=== PATIENT | male | born 1995 | race Caucasian/White ===

== ENCOUNTER 2016-07-17 15:55 | Emergency (ER) | payer OTHER ==
[~2016-07-17] VITALS: Wt 87.0 kg
--- NOTE | 2016-07-17 19:51 | ERD ---
ER Documentation Chief Complaint Date/Time DATE: 07/17/16 TIME: 19:43 Chief Complaint HEAD INJURY S/P GLF YESTERDAY, NO KO HPI Patient is a 20-year-old male who presents to the emergency department with a headache status post fall yesterday. Patient states that he fell off his skateboard and hit the left side of his head. Patient states he had approximately one hour of "feeling dazed and confused." Patient reported during that time he had decreased vision. Patient states she had 2 episodes of nonbloody nonbilious vomiting yesterday. Patient states that he went to bed last night and "felt better this morning," however he continues to have some left sided head pain. Patient describes the pain to a 7 out of 10. Patient denies any nausea, vomiting, confusion or excessive sleepiness today. He denies any loss of consciousness. Patient has been able to eat and drink normally any nausea today. Patient denies any chest pain, shortness of breath, abdominal pain or lacerations. ROS All systems reviewed and are negative except as per history of present illness. Medications Home Meds Active Scripts Ondansetron (Ondansetron Odt) 4 Mg Tab.rapdis, 4 MG PO Q6H Y for NAUSEA AND/OR VOMITING, #10 TAB Prov:SHAWN ROBIN PA-C 07/17/16 Acetaminophen* (Tylophen*) 500 Mg Capsule, 2 CAP PO Q8H Y for PAIN AND OR ELEVATED TEMP, #20 CAP Prov:SHAWN ROBIN PA-C 07/17/16 Allergies Allergies: Coded Allergies: No Known Allergy (Unverified , 07/17/16) PMhx/Soc Medical and Surgical Hx: pt denies Medical Hx, pt denies Surgical Hx Hx Alcohol Use: No Hx Substance Use: No Hx Tobacco Use: No Smoking Status: Never smoker FmHx Family History: No diabetes Physical Exam Vitals Vital Signs Date Time Temp Pulse Resp B/P Pulse Ox O2 Delivery O2 Flow Rate FiO2 07/17/16 21:20 98.6 80 18 131/70 99 Room Air 07/17/16 16:25 96.7 70 18 133/71 98 Physical Exam GENERAL: Well-developed, well-nourished male. Appears in no acute distress. Speaking in full sentences. HEAD: Normocephalic, atraumatic. No deformities or hematomas. + Scalp ecchymosis noted to left temporal region. Tender to palpation over the left temporal region. No step-offs. No mastoid tenderness or ecchymosis noted bilaterally. EYE: Pupils equal, round, and reactive to light. EOMs intact. No conjunctival erythema. No scleral icterus. No eye discharge. No bilateral periorbital ecchymosis. ENT: External ear without any masses or tenderness. Auditory canals clear bilaterally. No hemotypanium bilaterally. TM visualized bilaterally, non- erythematous, non-bulging. Nasal mucosa pink with no discharge. Oropharynx is pink without any tonsillar erythema or exudates. No uvula deviation. No kissing tonsils. No mastoid process tenderness or ecchymosis bilaterally. NECK: Supple. No lymphadenopathy or thyromegaly. No meningismus. Trachea midline. Normal range of motion of cervical spine. No midline tenderness. LUNG: Clear to auscultation bilaterally. No rhonchi, wheezing, rales or coarse breath sounds. HEART: Regular rate and rhythm. No murmurs, rubs or gallops. BACK: No midline tenderness. EXTREMITIES: Equal pulses bilaterally. No peripheral clubbing, cyanosis or edema. No unilateral leg swelling. NEUROLOGIC: Alert and oriented x3, cooperative. Mood and affect appropriate to situation. Cranial nerves II through XII are grossly intact. Normal speech. Motor exam: 5/5 strength in upper and lower extremities. Sensory exam: Sensation intact to light touch on all four extremities. Cerebellar function exam: No dysmetria on [id number]. Steady gait. No pronator drift. SKIN: Normal color. Warm and dry. No rashes or lesions. Procedures/MDM ED COURSE: The patient was stable throughout ED course. I kept the patient and/or family informed of laboratory and diagnostic imaging results throughout the ED course. DIAGNOSTIC IMAGING: Read by radiologist. DIAGNOSTIC IMAGING REPORT Patient: DA SHELLEY : 1995 Age: 20 Sex: M MR #: [id number] DOS: 07/17/161928 Ordering MD: SHAWN ROBIN PA-C Location: [facility] Room/Bed: PROCEDURE: CT Brain without. CLINICAL INDICATION: Head trauma. TECHNIQUE: A CT of the brain was performed on multidetector high-resolution CT scanner utilizing axial sections from the skull base through the vertex without contrast. The scan was reviewed in soft tissue brain and high frequency resolution bone algorithm windows. Images were reviewed on a high- resolution PACS workstation. One or more the following does reduction techniques were utilized: Automated exposure control, adjustment of themA/ or kV according to patient's size, or use of iterative reconstruction technique. The exam CTDI = 45.01 mGy and the DLP = 720.23 mGy-cm. COMPARISON: None available. FINDINGS: The ventricles and sulci are age-appropriate. There is no intracranial hemorrhage, mass effect or midline shift. No abnormal intra-axial or extra- axial fluid collections are seen. The alonso/white matter differentiation is preserved. No acute skull abnormality is noted. The visualized paranasal sinuses are essentially clear. IMPRESSION: 1. No acute intracranial hemorrhage, transcortical infarction or mass effect. RPTAT: HH .Rina Louis MD, MD Date Time Electronically viewed and signed by .Rina Louis MD, MD on 07/17/2016 20: 11 .N/ CC: SHAWN ROBIN PA-C MEDICAL DECISION MAKING: This is a 20-year-old male who presents with a headache status post ground- level fall yesterday. Patient reported feeling confused and episodes of vomiting yesterday. Patient's symptoms have improved today. Patient denies any nausea, vomiting, confusion, excessive sleepiness or loss of consciousness today. Vital signs were reviewed. Patient was afebrile. Patient was not hypoxic. Full neurological exam was normal. CT brain without IV contrast was ordered. CT brain showed no acute intracranial hemorrhage, transcortical infarction or mass effect. Given these findings, the patients presentation is most consistent with concussion. I have a much lower clinical concern for traumatic brain injury, intracranial hemorrhage, meningitis, benign intracranial hypertension, intracranial mass, cluster headache. PRESCRIPTIONS: Tylenol Zofran DISCHARGE: At this time, patient is stable for discharge and outpatient management. Strict head injury precautions were discussed with the patient and his mother. I have instructed the family to monitor the patient closely and return to the ER immediately for any new or worsening symptoms including increased pain, headache , nausea, vomiting, weakness, numbness, confusion, excessive sleepiness, seizures or LOC. Patient should follow-up with his/her primary care physician in 1-2 days. The patient and/or family expressed understanding of and agreement with this plan. All questions were answered. Home care instructions were provided. Departure Diagnosis: Primary Impression: Concussion Encounter type: initial encounter Loss of consciousness presence/duration: without LOC Qualified Code: S06.0X0A - Concussion, without loss of consciousness, initial encounter Additional Impression: Headache Headache type: unspecified Headache chronicity pattern: acute headache Intractability: not intractable Qualified Code: R51 - Acute nonintractable headache, unspecified headache type Condition: Stable Patient Instructions: HEAD INJURY, No Wake-Up (Adult) Referrals: [facility] YOU HAVE RECEIVED A MEDICAL SCREENING EXAM AND THE RESULTS INDICATE THAT YOU DO NOT HAVE A CONDITION THAT REQUIRES URGENT TREATMENT IN THE EMERGENCY DEPARTMENT. FURTHER EVALUATION AND TREATMENT OF YOUR CONDITION CAN WAIT UNTIL YOU ARE SEEN IN YOUR DOCTORS OFFICE WITHIN THE NEXT 1-2 DAYS. IT IS YOUR RESPONSIBILITY TO MAKE AN APPOINTMENT FOR [facility]. IF YOU HAVE A PRIMARY DOCTOR --you should call your primary doctor and schedule an appointment IF YOU DO NOT HAVE A PRIMARY DOCTOR YOU CAN CALL OUR PHYSICIAN REFERRAL HOTLINE AT IF YOU CAN NOT AFFORD TO SEE A PHYSICIAN YOU CAN CHOSE FROM THE FOLLOWING [facility] [address] [facility]. [facility] [address] [facility]. [facility] [address] [facility] [facility] [address] [facility] [address] [facility]. [facility]. [address] [facility]. [facility] YOU HAVE RECEIVED A MEDICAL SCREENING EXAM AND THE RESULTS INDICATE THAT YOU DO NOT HAVE A CONDITION THAT REQUIRES URGENT TREATMENT IN THE EMERGENCY DEPARTMENT. FURTHER EVALUATION AND TREATMENT OF YOUR CONDITION CAN WAIT UNTIL YOU ARE SEEN IN YOUR DOCTORS OFFICE WITHIN THE NEXT 1-2 DAYS. IT IS YOUR RESPONSIBILITY TO MAKE AN APPOINTMENT FOR FOLOW-UP CARE. IF YOU HAVE A PRIMARY DOCTOR --you should call your primary doctor and schedule and appointment IF YOU DO NOT HAVE A PRIMARY DOCTOR YOU CAN CALL OUR PHYSICIAN REFERRAL HOTLINE AT . IF YOU CAN NOT AFFORD TO SEE A PHYSICIAN YOU CAN CHOSE FROM THE FOLLOWING [facility]: [facility] [address] [place] [address] [facility] [address] [place] [address] [facility] + [facility] [address] [place] [address] Additional Instructions: Call your primary care doctor TOMORROW for an appointment during the next 1-2 days.See the doctor sooner or return here if your condition worsens before your appointment time. Patient was given strict head injury return precautions. She was advised to return to the emergency department for any worsening head pain, nausea, vomiting , confusion, excessive sleepiness, loss of consciousness. SHAWN ROBIN PA-C Jul 17, 2016 19:51
--- NOTE | 2016-07-17 20:11 | RADRPT ---
PROCEDURE: CT Brain without. CLINICAL INDICATION: Head trauma. TECHNIQUE: A CT of the brain was performed on multidetector high-resolution CT scanner utilizing a xial sections from the skull base through the vertex without contrast. The scan was reviewed in sof t tissue brain and high frequency resolution bone algorithm windows. Images were reviewed on a high -resolution PACS workstation. One or more the following does reduction techniques were utilized: Aut omated exposure control, adjustment of themA/ or kV according to patient's size, or use of iterative reconstruction technique. The exam CTDI = 45.01 mGy and the DLP = 720.23 mGy-cm. COMPARISON: None available. FINDINGS: The ventricles and sulci are age-appropriate. There is no intracranial hemorrhage, mass effect or mi dline shift. No abnormal intra-axial or extra-axial fluid collections are seen. The alonso/white anisha er differentiation is preserved. No acute skull abnormality is noted. The visualized paranasal sinus es are essentially clear. IMPRESSION: 1. No acute intracranial hemorrhage, transcortical infarction or mass effect. RPTAT: HH .Rina Louis MD, MD Date Time Electronically viewed and signed by .Rina Louis MD, MD on 07/17/2016 20:11 .N/
[2016-07-17] MEDS ORDERED: ACET500C5 PO (20:15)
[2016-07-17] MEDS ORDERED: ONDA4TAB14 PO (20:15)
[2016-07-17 21:20] VITALS: BP 131/70; PULSE 80; RESP 18; TEMP 98.6
== END 2016-07-17 21:21 | disposition home or self-care (01) ==
LOC: FTE 15:55
DX: S06.0X0A Concussion without loss of consciousness, initial encounter (principal); R51 Headache; R11.10 Vomiting, unspecified; V00.131A Fall from skateboard, initial encounter; Y92.9 Unspecified place or not applicable
CPT/HCPCS: 70450; Z7502